=== PATIENT | female | born 1985 | race African-American/Black ===

== ENCOUNTER 2016-08-16 13:23 | Emergency (ER) | payer OTHER ==
[~2016-08-16] VITALS: Ht 152.4 cm; Wt 90.7 kg
[2016-08-16] MEDS ORDERED: OXYCONTIN20 M1 PO (13:28)
[2016-08-16] MEDS ORDERED: MOBIC15 MG PO (14:18)
[2016-08-16 14:43] VITALS: BP 130/79
== END 2016-08-16 14:46 | disposition home or self-care (01) ==
LOC: ER 13:23
DX: M54.9 Dorsalgia, unspecified (principal); G89.29 Other chronic pain